=== PATIENT | male | born 1985 | race Caucasian/White ===

== ENCOUNTER 2020-10-11 14:57 | Emergency (ER) | payer OTHER ==
[~2020-10-11] VITALS: Ht 182.9 cm; Wt 100.9 kg
[2020-10-11 15:00] VITALS: BP 121/87
--- NOTE | 2020-10-11 15:12 | NUR ---
PT LEFT DEPARTMENT TO GET XRAYS FROM CAR. CHARGE STATES PT NEED TO RE-REGISTER AND RE-TRIAGE.
== END 2020-10-11 15:13 | disposition left against medical advice (07) ==
LOC: ED 15:05
DX: M75.21 Bicipital tendinitis, right shoulder (principal); M79.601 Pain in right arm
CPT/HCPCS: 99283

== ENCOUNTER 2020-10-11 15:12 | Emergency (ER) | payer OTHER ==
[~2020-10-11] VITALS: Ht 182.9 cm; Wt 100.9 kg
[2020-10-11 15:16] VITALS: BP 121/87
--- NOTE | 2020-10-11 17:15 | NUR ---
AT BEDSIDE. MD TO GIVE PT SHOT FOR PAIN.
[2020-10-11] MEDS ORDERED: BUPIVACAINE 0.25% ONE (17:20)
[2020-10-11] MEDS ORDERED: LIDOCAINE-MPF 1%, 5ML ONE (17:20)
[2020-10-11] MEDS ORDERED: TRIAMCINOLONE ACETONIDE 40 MG/ML, 1ML IM ONE (18:00)
[2020-10-11] MEDS ORDERED: LIDOCAINE 1%, 10ML INFIL ONE (18:00)
== END 2020-10-11 17:04 | disposition home or self-care (01) ==
LOC: ED 16:56
DX: M25.511 Pain in right shoulder (principal); Z53.21 Procedure and treatment not carried out due to patient leaving prior to being seen by health care provider
CPT/HCPCS: 99283

== ENCOUNTER 2020-11-08 10:47 | Day surgery (SDC) | payer OTHER ==
[~2020-11-08] VITALS: Ht 188 cm; Wt 99.0 kg
[2020-11-08 11:17] VITALS: BP 133/87
[2020-11-08] MEDS ORDERED: CHLORHEXIDINE 15 ML UDC MM STA (11:21)
[2020-11-08] MEDS ORDERED: PREG75CA PO (11:26)
[2020-11-08] MEDS ORDERED: MIDAZOLAM 1 MG/ML, 2ML ONE ×2 (11:29→13:09)
[2020-11-08] MEDS ORDERED: FENTANYL PF 250 MCG/5ML ONE (11:29)
[2020-11-08] MEDS ORDERED: LACTATED RINGERS 1,000 ML IV SCH (11:30)
[2020-11-08] MEDS ORDERED: SUCCINYLCHOLINE 20 MG/ML, 10ML ONE ×2 (12:03→13:45)
[2020-11-08] MEDS ORDERED: ONDANSETRON 2MG/ML, 2ML ONE ×2 (12:03→13:45)
[2020-11-08] MEDS ORDERED: NEOSTIGMINE 1 MG/ML, 10ML ONE ×2 (12:03→13:45)
[2020-11-08] MEDS ORDERED: DEXAMETHASONE 4 MG/ML, 1ML ONE ×2 (12:03→13:45)
[2020-11-08] MEDS ORDERED: CEFAZOLIN 1,000 MG ONE ×2 (12:03→13:45)
[2020-11-08] MEDS ORDERED: SUGAMMADEX 200 MG/2 ML IVPush ONE ×2 (12:03→13:45)
[2020-11-08] MEDS ORDERED: ROCURONIUM 10MG/ML,5ML ONE ×2 (12:03→13:45)
[2020-11-08] MEDS ORDERED: PROPOFOL 10 MG/ML, 20ML ONE ×2 (12:03→13:45)
[2020-11-08] MEDS ORDERED: GLYCOPYRROLATE 0.2MG/1ML, 5ML ONE ×2 (12:03→13:45)
[2020-11-08] MEDS ORDERED: GABA-827 PO (12:07)
[2020-11-08] MEDS ORDERED: DIAZ5TAB PO (12:07)
[2020-11-08] MEDS ORDERED: OXYC10TA47 PO (12:07)
[2020-11-08] MEDS ORDERED: DIAZEPAM 5 MG TABLET PO SCH (12:30)
[2020-11-08] MEDS ORDERED: BUPIVACAINE/PF-EPI 0.5% 1:200K ONE (13:08)
[2020-11-08] MEDS ORDERED: LIDOCAINE/PF 1%, 30ML ONE (13:08)
[2020-11-08] MEDS ORDERED: LIDOCAINE 1%, 20ML ONE (13:08)
[2020-11-08] MEDS ORDERED: EPINEPHRINE 1 MG/ML, 1ML ONE (13:08)
[2020-11-08] MEDS ORDERED: MEPERIDINE/PF 25MG/0.5ML IVPush PRN (13:30)
[2020-11-08] MEDS ORDERED: HYDROmorphone 2 MG/ML, 1ML IVPush PRN (13:30)
[2020-11-08] MEDS ORDERED: ACETAMINOPHEN 325 MG TABLET PO PRN (13:30)
[2020-11-08] MEDS ORDERED: ALBUTEROL SULFATE 2.5 MG/3 ML NPPB PRN (13:30)
[2020-11-08] MEDS ORDERED: FENTANYL PF 100 MCG/2ML IV PRN (13:30)
[2020-11-08] MEDS ORDERED: KETOROLAC 30 MG/1 ML IV PRN (13:30)
[2020-11-08] MEDS ORDERED: OXYcodone 5 MG/5 ML ORAL.SOL UDC PO PRN (13:30)
[2020-11-08] MEDS ORDERED: hydrALAzine 20 MG/ML, 1ML IV PRN (13:30)
[2020-11-08] MEDS ORDERED: PROMETHAZINE 25 MG/ML, 1ML IV PRN (13:30)
[2020-11-08] MEDS ORDERED: LABETALOL 5MG/ML, 20ML IV PRN (13:30)
[2020-11-08] MEDS ORDERED: DIAZEPAM 5 MG/ML, 2ML IVPush PRN (13:30)
[2020-11-08] MEDS ORDERED: MEPERIDINE/PF 50 MG/ML ONE (13:46)
[2020-11-08] MEDS ORDERED: GABAPENTIN 400 MG CAPSULE PO SCH (16:00)
[2020-11-08] MEDS ORDERED: OxyconTIN ER 10 MG TAB.ER PO SCH (21:00)
== END 2020-11-08 15:41 | disposition home or self-care (01) ==
LOC: OUT 10:47
PROVIDERS: ATTEND Orthopaedic Surgery
DX: S43.431A Superior glenoid labrum lesion of right shoulder, initial encounter (principal); M65.811 Other synovitis and tenosynovitis, right shoulder; M75.21 Bicipital tendinitis, right shoulder; M25.811 Other specified joint disorders, right shoulder; G89.18 Other acute postprocedural pain; Z20.822 Contact with and (suspected) exposure to COVID-19; Z79.891 Long term (current) use of opiate analgesic; Z79.899 Other long term (current) drug therapy; Z88.5 Allergy status to narcotic agent; Z98.890 Other specified postprocedural states; Z82.61 Family history of arthritis; Z82.3 Family history of stroke; X58.XXXA Exposure to other specified factors, initial encounter; Y93.89 Activity, other specified; Y92.89 Other specified places as the place of occurrence of the external cause; Y99.8 Other external cause status
CPT/HCPCS: 29823; 64415; 87635; J0171; J0330; J0690; J1100; J2175; J2250; J2405; J2704; J2710; J3010